=== PATIENT | female | born 1970 | race Caucasian/White ===

== ENCOUNTER 2021-03-11 10:02 | Inpatient (IN) ==
[2021-03-11] MEDS ORDERED: HYDROmorphone INJ 0.5 MG/0.5 ML SYR IV PRN (10:36)
[2021-03-11] MEDS ORDERED: dexAMETHasone**PF** 10 MG/ML VIAL IV ONE (10:36)
[2021-03-11] MEDS ORDERED: ONDANSETRON INJ 2 MG/ML 2 ML VIAL IV STA (10:36)
--- NOTE | 2021-03-11 11:29 | Emergency Department Note ---
Impression & Plan Severe low back pain, Sciatica, Herniated nucleus pulposus, L4-5 right ED Provider Note INFORMANT: Patient ED PROVIDER(S): Cruz Zepeda MD CHIEF COMPLAINT: Back pain PLAN: Disposition: Admitted Condition: Good Outpatient prescription management: none Referral: None MEDICAL DECISION MAKING: Patient presented with severe back pain and sciatic symptoms. She has a known severe bulging disc with nerve root compression. The patient was given Dilaudid and Zofran. She was reassessed and was feeling better. She was also treated with Decadron. Consultation was made with her spine surgeon, Dr. Loyola. He is aware of the patient's significant condition and will admit the patient for further management. Triage Nursing notes reviewed and agree them. Vital Signs: reviewed and remarkable for no significant abnormalities Differential diagnosis: Musculoskeletal, disc herniation, fracture, metastatic disease, cord compression, discitis, sciatica, cauda equina, infection, aortic disease, renal colic, gastrointestinal, as well as other pathologies. Diagnostics interpreted by me: ECG: none Cardiac Monitoring: none Imaging studies: Deferred HPI: The patient is a 51 year old female who presents to the Emergency Room with complaints of low back pain. This started last night and is increasing. The patient has a history of an L4 herniated disc which was compressing on her L4 nerve root. She has been seen by Dr. Loyola in the past. She was to have surgery but it has been postponed secondary to the Covid pandemic. She was decorating her house yesterday and felt like she may have strained her lower back. Pain became more severe. She has right leg weakness. No bowel or bladd er incontinence. She did try her NSAID at home without relief. Current pain is rated an 8/10. Pt denies LOC, headache, fevers, chills, diaphoresis, visual changes, neck pain, chest pain, breathing difficulties, nausea, vomiting, abdominal pain, melena, hematochezia, urinary symptoms, numbness,lym phadenopathy, rash, or other complaints. ROS: See above HPI for pertinent positives & negatives. A total of 10 systems reviewed and were otherwise negative. PAST MEDICAL HISTORY:See Below , herniated disc, asthma PAST SURGICAL HISTORY:See Below, discectomy, laminectomy, hysterectomy FAMILY HISTORY:See Below SOCIAL HISTORY:See Below, employed HOME MEDICATIONS:See Below ALLERGIES:See Below VITALS:See Below PHYSICAL EXAMINATION: GENERAL: Awake, alert, very uncomfortable-appearing, in no distress HENT: Normocephalic, atraumatic. Oropharynx unremarkable. EYES: Normal conjunctiva. Sclera non-icteric. NECK: Inspection normal. Non-tender. Supple. No nuchal rigidity. FROM. No masses. RESPIRATORY: Clear to auscultation. No wheezes. No rales. Normal respiratory effort. CARDIAC: Normal rate. Normal rhythm. No murmurs. No rubs. Extremities warm and well perfused. Pulses equal. No JVD. GI: Soft, non-distended. No tenderness to palpation. No rebound or guarding. No masses. RECTAL: Deferred. MUSCULOSKELETAL: Atraumatic. Chest examination reveals no tenderness. The back is symmetrical on inspection without obvious abnormality. There is no CVA t enderness to palpation. No joint edema. Tenderness over the right sciatic notch. LOWER EXTREMITIES: Calves are equal size bilaterally and non-tender. No edema. No discoloration. NEURO: Normal sensorium. Mild weakness noted of right foot dorsiflexion and plantar flexion. Subjective tingling in the area of the right lateral calf. No saddle anesthesia. SKIN: No rash or jaundice noted. Cruz Zepeda MD Past Med/Surg History Medical History Asthma GERD (gastroesophageal reflux disease) Obesity Stomach problems Surgical History H/O discectomy H/O laminectomy H/O: hysterectomy Family History Other Cancer Diabetes Hypertension Social History Smoking Status: Never smoker Hx Alcohol Use: No Hx Substance Use: No Preferred Language: Upper Sorbian Communication Ability: Effective Sas Bi Developer Required: No Beliefs That Will Affect Care: None marital status: Current Living Situation: Significant Other Feels Safe at Home: No Safety Concerns: Feels Safe At This Time Allergies Allergies Allergy/AdvReac Type Severity Reaction Status Date / Time cephalexin Allergy Mild rash Verified 03/11/21 13:36 Sulfa (Sulfonamide Allergy Mild rash Verified 03/11/21 13:36 Antibiotics) Penicillins Allergy Unknown ? Verified 03/11/21 13:36 adhesive AdvReac Unknown BANDAIDS - Verified 03/11/21 13:36 BURN SKIN Home Meds Home Medications Medication Instructions Recorded Confirmed ascorbic acid (vitamin C) 500 mg 500 mg PO DAILY 04/01/18 03/11/21 tablet (Vitamin C) cholecalciferol (vitamin D3) 25 1,000 unit PO DAILY 04/01/18 03/11/21 mcg (1,000 unit) tablet (Vitamin D3) indomethacin 75 mg 75 mg PO BID 04/01/18 03/11/21 capsule,extended release multivitamin 1 tab PO DAILY 04/01/18 03/11/21 pantoprazole 40 mg tablet,delayed 40 mg PO DAILY 04/01/18 03/11/21 release Amberen 1 tab PO DAILY 03/11/21 03/11/21 aspirin 81 mg tablet,delayed 81 mg PO DAILY 03/11/21 03/11/21 release (Aspirin Low Dose) cinnamon bark 500 mg capsule 500 mg PO DAILY 03/11/21 03/11/21 (Cinnamon) gabapentin 100 mg capsule 100 mg PO DAILY 03/11/21 03/11/21 Results & Data (ED) Vital Signs Vital Signs - 24 hr 03/11/21 10:10 03/11/21 12:01 03/11/21 13:24 Temperature 36.6 C Temperature Source Skin Pulse Rate 99 H Pulse Rate [Finger] 82 79 Respiratory Rate 18 20 18 Blood Pressure 149/77 H Blood Pressure [Right Arm] 145/87 H 136/87 Blood Pressure Mean 101 Blood Pressure Mean [Right Arm] 106 103 Pulse Oximetry 97 99 100 Oxygen Delivery Method Room Air Room Air Room Air Sepsis Recent Fever Within 48 Hours No Sepsis New/Unexplained Change in Mental Status No Sepsis Action Taken by Nursing No Action Required Laboratory Data Result diagrams: 03/11/21 11:44 03/11/21 16:14 Lab Results 03/11/21 03/11/21 03/11/21 Range/Units 11:44 11:44 13:20 WBC 8.77 (4.8-10.8) K/uL RBC 4.87 (4.2-5.4) M/uL Hgb 14.3 (12.0-16.0) g/dL Hct 42.8 (37-47) % MCV 87.9 (80-100) fL MCH 29.4 (25-34) pg MCHC 33.4 (32-36) g/dL RDW Std Deviation 43.0 (36.4-46.3) fL RDW Coeff of Brenda 13.3 (11.5-14.5) % Plt Count 267 (130-400) K/uL MPV 10.1 (7.4-10.4) fL Immature Gran % (Auto) 0.2 % Neut % (Auto) 53.3 % Lymph % (Auto) 33.5 % [place] % (Auto) 8.4 % Eos % (Auto) 4.1 % Baso % (Auto) 0.5 % Neut # (Auto) 4.67 (1.4-6.5) K/uL Lymph # (Auto) 2.94 (1.2-3.4) K/uL [place] # (Auto) 0.74 H (0.11-0.59) K/uL Eos # (Auto) 0.36 (0-0.5) K/uL Baso # (Auto) 0.04 (0-0.2) K/uL Immature Gran # (Auto) 0.02 (0.00-0.02) K/uL Sodium 140 (136-145) mmol/L Potassium (3.5-5.1) mmol/L Chloride 109 H (98-107) mmol/L Carbon Dioxide 26 (21-32) mmol/L Anion Gap 5.0 (3-11) BUN 15 (7-18) mg/dl Creatinine 0.64 (0.6-1.2) mg/dl Est Cr Clr Drug Dosing 114.0 ml/min Est GFR ( Amer) 118.9 ml/min Est GFR (Non-Af Amer) 102.6 ml/min BUN/Creatinine Ratio 24.0 H (10-20) Glucose 101 H (70-99) mg/dl Calcium 9.4 (8.5-10.1) mg/dl Total Bilirubin 0.5 (0.2-1) mg/dl AST (15-37) U/L ALT 56 (12-78) Alkaline Phosphatase 89 (45-117) U/L Total Protein 7.3 (6.4-8.2) gm/dl Albumin 3.6 (3.4-5.0) gm/dl Globulin 3.7 (2.5-4.0) gm/dl Albumin/Globulin Ratio 1.0 (0.9-2) SARS-CoV-2, RNA, NAAT NEGATIVE (NEGATIVE) Administered Medications Lactated Ringer's (Lr) 1,000 mls @ 75 mls/hr IV .[id number] MARY CARMEN Stop: 04/10/21 15:29 Last Admin: 03/11/21 16:00 Dose: Not Given Documented by: [id number] Discontinued Medications Dexamethasone Sodium Phosphate (DexamethasonePf 10 Mg/Ml Vial) 10 mg IV NOW ONE Stop: 03/11/21 10:37 Last Admin: 03/11/21 11:56 Dose: 10 mg Documented by: [id number] Hydromorphone HCl (Hydromorphone Inj 0.5 Mg/0.5 Ml Syr) 0.5 mg IV Q15M PRN PRN Reason: Pain Stop: 03/25/21 10:35 Last Admin: 03/11/21 11:56 Dose: 0.5 mg Documented by: [id number] Ondansetron HCl (Ondansetron Inj 2 Mg/Ml 2 Ml Vial) 4 mg IV NOW STA Stop: 03/11/21 10:37 Last Admin: 03/11/21 11:56 Dose: 4 mg Documented by: [id number] Discharge Plan Visit Data Chief Complaint: Back Injury/Pain Stated Complaint: SEVERE BACK & R LEG PAIN ED Provider: Cruz Zepeda Discharge Problem: Severe low back pain, Sciatica, Herniated nucleus pulposus, L4-5 right Patient Disposition: Admitted As Inpatient Discharge Instructions Interventions: ED Discharge Assessment Last Done: 03/11/21 15:11
[2021-03-11 11:50] LABS: Basophils # (auto) 0.04 K/uL (0-0.2); Basophils % (auto) 0.5 %; Eosinophils # (auto) 0.36 K/uL (0-0.5); Eosinophils % (auto) 4.1 %; Hematocrit (blood only) 42.8 % (37-47); Hemoglobin 14.3 g/dL (12.0-16.0); Immature Granulocytes # (auto) 0.02 K/uL (0.00-0.02); Immature Granulocytes % (auto) 0.2 %; Lymphocytes # (auto) 2.94 K/uL (1.2-3.4); Lymphocytes % (auto) 33.5 %; Mean Corpuscular Hemoglobin 29.4 pg (25-34); Mean Corpuscular Hgb Conc 33.4 g/dL (32-36); Mean Corpuscular Volume 87.9 fL (80-100); Mean Platelet Volume 10.1 fL (7.4-10.4); Monocytes # (auto) 0.74 K/uL (0.11-0.59); Monocytes % (auto) 8.4 %; Neutrophils # (auto) 4.67 K/uL (1.4-6.5); Neutrophils % (auto) 53.3 %; Platelet Count 267 K/uL (130-400); RDW Coefficient of Variation 13.3 % (11.5-14.5); Red Blood Count 4.87 M/uL (4.2-5.4); White Blood Count 8.77 K/uL (4.8-10.8)
[2021-03-11 12:30] LABS: Albumin Level 3.6 gm/dl (3.4-5.0); Bilirubin,Total 0.5 mg/dl (0.2-1); Calcium 9.4 mg/dl (8.5-10.1); Est GFR (African American) 118.9 ml/min; Est GFR (Non-African American) 102.6 ml/min; Globulin 3.7 gm/dl (2.5-4.0); Total Protein 7.3 gm/dl (6.4-8.2)
--- NOTE | 2021-03-11 15:23 | Anesthesiology Consultation ---
Date of Service March 11, 2021 Assessment & Plan (1) Encounter for pre-operative examination: Chart Review Chart Review: Acceptable Risk for Surgery and Patient NOT seen in Pre Admission Testing Consults Requested none History Surgery Operation Date: 03/12/21 10:50 Proposed Procedures p L4-L5 Decompression and Fusion - Edward Loyola, Height/Weight Height: 5 ft 5 in Weight: 90 kg Allergies Allergy/AdvReac Type Severity Reaction Status Date / Time cephalexin Allergy Mild rash Verified 03/11/21 13:36 Sulfa (Sulfonamide Allergy Mild rash Verified 03/11/21 13:36 Antibiotics) Penicillins Allergy Unknown ? Verified 03/11/21 13:36 adhesive AdvReac Unknown BANDAIDS - Verified 03/11/21 13:36 BURN SKIN Medications Home Medications Medication Instructions Recorded Confirmed Last Taken ascorbic acid (vitamin C) 500 mg 500 mg PO DAILY 04/01/18 03/11/21 03/31/18 tablet (Vitamin C) cholecalciferol (vitamin D3) 25 1,000 unit PO DAILY 04/01/18 03/11/21 03/31/18 mcg (1,000 unit) tablet (Vitamin D3) indomethacin 75 mg 75 mg PO BID 04/01/18 03/11/21 03/31/18 capsule,extended release multivitamin 1 tab PO DAILY 04/01/18 03/11/21 03/31/18 pantoprazole 40 mg tablet,delayed 40 mg PO DAILY 04/01/18 03/11/21 03/31/18 release Amberen 1 tab PO DAILY 03/11/21 03/11/21 Unknown aspirin 81 mg tablet,delayed 81 mg PO DAILY 03/11/21 03/11/21 Unknown release (Aspirin Low Dose) cinnamon bark 500 mg capsule 500 mg PO DAILY 03/11/21 03/11/21 Unknown (Cinnamon) gabapentin 100 mg capsule 100 mg PO DAILY 03/11/21 03/11/21 Unknown Active Medications Generic Name Dose Route Start Last Admin Trade Name Freq PRN Reason Stop Dose Admin Hydromorphone HCl 0.5 mg 03/11/21 10:36 03/11/21 11:56 Hydromorphone Inj 0.5 Mg/0.5 Ml Syr IV 03/25/21 10:35 0.5 mg Q15M PRN Administration Pain Past Medical History Medical History Asthma GERD (gastroesophageal reflux disease) Obesity Stomach problems Past Family History Family History Other No pertinent family history Past Surgical History Surgical History H/O discectomy H/O laminectomy H/O: hysterectomy Social History Smoking Status: Never smoker Physical Exam Vital Signs Last Vital Signs Temp 36.6 C 03/11/21 10:10 Pulse 79 03/11/21 13:24 Resp 18 03/11/21 13:24 BP 136/87 03/11/21 13:24 Pulse Ox 100 03/11/21 13:24 Testing Laboratory Results 03/11/21 11:44 03/11/21 11:44 Electrocardiogram Date: 03/11/21 Findings: + NSR @ (79) and + NSST changes
[2021-03-11] MEDS ORDERED: ALUMINUM/MAGNESIUM SUSP 30 ML UDC PO PRN (15:30)
[2021-03-11] MEDS ORDERED: ONDANSETRON 4 MG OD TAB PO PRN (15:30)
[2021-03-11] MEDS ORDERED: METOCLOPRAMIDE HCL INJ 5 MG/ML 2 ML VIAL IV PRN (15:30)
[2021-03-11] MEDS ORDERED: HYDROmorphone INJ 1 MG/ML SYRINGE IV PRN (15:30)
[2021-03-11] MEDS ORDERED: MAGNESIUM HYDROXIDE SUSP 30 ML UDC PO PRN (15:30)
[2021-03-11] MEDS ORDERED: traMADol HCL 50 MG TABLET PO PRN (15:30)
[2021-03-11] MEDS ORDERED: ONDANSETRON INJ 2 MG/ML 2 ML VIAL IV PRN (15:30)
[2021-03-11] MEDS ORDERED: diphenhydrAMINE Capsule 25 MG CAP PO PRN (15:30)
[2021-03-11] MEDS ORDERED: LORazepam 0.5 MG/1 ML VIAL IV PRN (15:30)
[2021-03-11] MEDS ORDERED: ACETAMINOPHEN 1,000 MG/100 ML VIAL IV PRN (15:30)
[2021-03-11] MEDS ORDERED: NALOXONE HCL 0.4 MG/1 ML VIAL/CARP IV PRN (15:30)
[2021-03-11] MEDS ORDERED: SOD PHOSPHATE/SOD BIPHOSPHATE ENEMA 132 ML BTL PR PRN (15:30)
[2021-03-11] MEDS ORDERED: LORazepam 0.5 MG TAB PO PRN (15:30)
[2021-03-11] MEDS ORDERED: PROMETHAZINE HCL 12.5 MG in SODIUM CHLORIDE 0.9% 50 ML IV PRN (15:30)
[2021-03-11] MEDS ORDERED: hydrOXYzine HCl 25 MG TAB PO PRN (15:30)
--- NOTE | 2021-03-11 15:56 | History & Physical Report ---
Date of Service March 11, 2021 Assessment & Plan (1) Herniated nucleus pulposus, L4-5 right: Plan: Assessment lumbar disc herniation L4-5 with free fragment caudal migration on the right. Plan at this time she is failed extensive course of nonoperative care continues to progress to neuro deficit and pain and recommending urgent decompression fusion L4-L5 with hardware removal L5-S1, possible fusion L3-L4. Risk benefits pros cons alternatives were outlined in detail. Admission and Anticipated Discharge Date Admission Date: March 11, 2021 History of Present Illness Chief Complaint: Back with right leg pain and weakness Primary Care Provider: Aylin Patel, This is a 51-year-old female well-known to me that presents with marked decline in status with worsening pain in the lumbosacral junction rating into the right buttock posterior thigh into the anterior tibia. She gets numbness and tingling down to her toes. She is developing a significant foot drop on the right. Left lower extremities asymptomatic. She is undergone extensive course of nonoperative care including multiple epidural injections and physical therapy. She is noted to have decline recently with marked severe pain and progressive weakness. Allergies Allergy/AdvReac Type Severity Reaction Status Date / Time cephalexin Allergy Mild rash Verified 03/11/21 13:36 Sulfa (Sulfonamide Allergy Mild rash Verified 03/11/21 13:36 Antibiotics) Penicillins Allergy Unknown ? Verified 03/11/21 13:36 adhesive AdvReac Unknown BANDAIDS - Verified 03/11/21 13:36 BURN SKIN Home Medications Medication Instructions Recorded Confirmed Type ascorbic acid (vitamin C) 500 mg 500 mg PO DAILY 04/01/18 03/11/21 History tablet (Vitamin C) cholecalciferol (vitamin D3) 25 1,000 unit PO DAILY 04/01/18 03/11/21 History mcg (1,000 unit) tablet (Vitamin D3) indomethacin 75 mg 75 mg PO BID 04/01/18 03/11/21 History capsule,extended release multivitamin 1 tab PO DAILY 04/01/18 03/11/21 History pantoprazole 40 mg tablet,delayed 40 mg PO DAILY 04/01/18 03/11/21 History release Amberen 1 tab PO DAILY 03/11/21 03/11/21 History aspirin 81 mg tablet,delayed 81 mg PO DAILY 03/11/21 03/11/21 History release (Aspirin Low Dose) cinnamon bark 500 mg capsule 500 mg PO DAILY 03/11/21 03/11/21 History (Cinnamon) gabapentin 100 mg capsule 100 mg PO DAILY 03/11/21 03/11/21 History Past Med/Surg History Medical History Asthma GERD (gastroesophageal reflux disease) Obesity Stomach problems Surgical History H/O discectomy H/O laminectomy H/O: hysterectomy Family History Other No pertinent family history Social History (Updated 01/02/21 @ 22:30 by Andrew Coronado PA-C) Smoking Status: Never smoker Hx Alcohol Use: No Hx Substance Use: No Preferred Language: [place] Communication Ability: Effective Coining 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 She exhibits significant tension signs with straight leg raising on the right negative on the left. She has a 4-/5 right dorsiflexion extensor hallucis longus compared to 5 or 5 on the left. Quadriceps are symmetric and intact. Deep tendon reflexes diminished. Results & Data ([facility]) Vital Signs (Past 12 Hours) Vital Signs Temp Pulse Pulse Resp BP BP Pulse Ox 03/11/21 15:30 37.2 C 88 16 142/83 H 98 03/11/21 13:24 79 18 136/87 100 03/11/21 12:01 82 20 145/87 H 99 03/11/21 10:10 36.6 C 99 H 18 149/77 H 97 Code Status & VTE Plan VTE Prophylaxis Plan VTE Prophylaxis will be ordered: Yes
[2021-03-11] MEDS: LACTATED RINGER'S 1,000 ML IV SCH (16:00)
--- NOTE | 2021-03-11 16:13 | Consultation ---
Date of Consultation March 11, 2021 Assessment & Plan (1) Herniated nucleus pulposus, L4-5 right: (2) Sciatica: Low back pain with radiation right leg with paresthesias History lumbar herniation Planned L4-L5 lumbar decompression and fusion tomorrow by Dr. Loyola NPO midnight Pain control per ortho (3) GERD (gastroesophageal reflux disease): Continue PPI (4) HAILEY (obstructive sleep apnea): CPAP HS DVT Prophylaxis -SCDs Follows with Dr Patel for routine care Pt was seen and care coordinated with Dr Ceron. See addendum Thank you for this consultation. We will follow the patient with you during their hospital stay. You can reach a member of the [facility] Team 25/10 via [employer] Supervising Physician Co-Signing Physician Notes Patient is a 51-year-old female with history of GERD, obstructive sleep apnea, lower back pain was consulted for medical management. Patient had lumbar disc herniation at L4-L5 and was planned for surgery by Dr. Loyola. Currently she denies any chest pain, shortness of breath, dizziness, nausea, abdominal pain. Please review HPI for complete details. On exam patient is moderately built and nourished, no apparent distress, normocephalic atraumatic, EOMI, normal breath sounds, clear to auscultation, S1-S2, no murmur, no pedal edema, abdomen soft, nontender, normal bowel sounds, alert, awake, oriented, grossly no focal deficits. Lumbar disc herniation L4-L5. Monitor for postop anemia. Bowel regimen to prevent constipation. DVT prophylaxis as per primary team. PT OT when appropriate. Continue CPAP for obstructive sleep apnea. I personally reviewed the record. Patient is interviewed and examined at bedside. Patient's care is coordinated with Jordyn Cuello PA-C. Please refer to the documentation above for details of patient's presentation and for discussion of other issues. History of Present Illness Requesting Physician: Dr. Loyola Reason for Consultation: Medical management Attending Physician: Edward Loyola, DO History of Present Illness Patient is 51-year-old female with PMH sleep apnea, GERD, obesity, lumbar herniation, seen in medical consultation for proposed L4- L5 lumbar decompression and fusion tomorrow by Dr. Loyola. Patient with ongoing low back pain, worsened yesterday while decorating with pain radiating down right buttock and leg with paresthesias. Denies loss control of bowel/bladder Allergies Allergy/AdvReac Type Severity Reaction Status Date / Time cephalexin Allergy Mild rash Verified 03/11/21 13:36 Sulfa (Sulfonamide Allergy Mild rash Verified 03/11/21 13:36 Antibiotics) Penicillins Allergy Unknown ? Verified 03/11/21 13:36 adhesive AdvReac Unknown BANDAIDS - Verified 03/11/21 13:36 BURN SKIN Home Medications Medication Instructions Recorded Confirmed Type ascorbic acid (vitamin C) 500 mg 500 mg PO DAILY 04/01/18 03/11/21 History tablet (Vitamin C) cholecalciferol (vitamin D3) 25 1,000 unit PO DAILY 04/01/18 03/11/21 History mcg (1,000 unit) tablet (Vitamin D3) indomethacin 75 mg 75 mg PO BID 04/01/18 03/11/21 History capsule,extended release multivitamin 1 tab PO DAILY 04/01/18 03/11/21 History pantoprazole 40 mg tablet,delayed 40 mg PO DAILY 04/01/18 03/11/21 History release Amberen 1 tab PO DAILY 03/11/21 03/11/21 History aspirin 81 mg tablet,delayed 81 mg PO DAILY 03/11/21 03/11/21 History release (Aspirin Low Dose) cinnamon bark 500 mg capsule 500 mg PO DAILY 03/11/21 03/11/21 History (Cinnamon) gabapentin 100 mg capsule 100 mg PO DAILY 03/11/21 03/11/21 History Patient History Medical History (Updated 03/11/21 @ 16:59 by Jordyn Cuello PA-C) Asthma GERD (gastroesophageal reflux disease) Herniated nucleus pulposus, L4-5 right Obesity HAILEY (obstructive sleep apnea) Stomach problems Surgical History H/O discectomy H/O laminectomy H/O: hysterectomy Family History Other Cancer Diabetes Hypertension Social History Smoking Status: Never smoker Hx Alcohol Use: No Hx Substance Use: No Preferred Language: Citizen Of [place] Communication Ability: Effective 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: No Beliefs That Will Affect Care: None marital status: Current Living Situation: Significant Other Feels Safe at Home: No Safety Concerns: Feels Safe At This Time Review of Systems Review of Systems: All systems reviewed & are unremarkable except as noted in HPI & below Physical Exam Physical Exam: General: no distress, obese Head: normocephalic, atraumatic Eyes: conjunctiva non-injected, anicteric ENT: normal inspection external ears, nose, mucous membranes moist Neck: supple, trachea midline Lungs: clear, no respiratory distress, no wheezing/rhonchi/rales CV: RRR, no murmur, no pretibial edema Abd: normal BS, soft, non-tender Back: no skin discoloration Ext: no cyanosis, no calf tenderness; distal pulses intact, sensation to light touch intact Neuro: A&O x 3, no focal deficits noted, normal affect Skin: warm, dry Results & Data ([facility]) Vital Signs (Past 12 Hours) Vital Signs Temp Pulse Pulse Resp BP BP Pulse Ox 03/11/21 15:30 37.2 C 88 16 142/83 H 98 03/11/21 13:24 79 18 136/87 100 03/11/21 12:01 82 20 145/87 H 99 03/11/21 10:10 36.6 C 99 H 18 149/77 H 97 Laboratory Results Short CBC 03/11/21 Range/Units 11:44 WBC 8.77 (4.8-10.8) K/uL Hgb 14.3 (12.0-16.0) g/dL Hct 42.8 (37-47) % Plt Count 267 (130-400) K/uL BMP 03/11/21 03/11/21 11:44 16:14 Sodium 140 136 Potassium 3.9 Chloride 109 H 104 Carbon Dioxide 26 26 BUN 15 15 Creatinine 0.64 0.72 Glucose 101 H 213 H Calcium 9.4 9.6 Liver Function 03/11/21 Range/Units 11:44 Total Bilirubin 0.5 (0.2-1) mg/dl AST (15-37) U/L ALT 56 (12-78) Alkaline Phosphatase 89 (45-117) U/L Albumin 3.6 (3.4-5.0) gm/dl
--- NOTE | 2021-03-11 16:31 | Electrocardiogram Report ---
Test Reason : Blood Pressure : / mmHG Vent. Rate : 079 BPM Atrial Rate : 079 BPM P-R Int : 168 ms QRS Dur : 082 ms QT Int : 400 ms P-R-T Axes : 051 024 064 degrees QTc Int : 458 ms Normal sinus rhythm Nonspecific T wave abnormality Abnormal ECG When compared with ECG of 22-JUN-2013 12:28, No significant change was found Confirmed by Rafael Morris ([id number]) on 03/11/2021 4:30:38 PM Referred By: REFERRED SELF Confirmed By:Rafael Morris
[2021-03-11 16:55] LABS: BUN Creatinine Ratio 21.5 (10-20); Calcium 9.6 mg/dl (8.5-10.1); Creatinine Clr Calc Pharmacy 101.3 ml/min; Est GFR (African American) 111.6 ml/min; Est GFR (Non-African American) 96.3 ml/min; Potassium 3.9 mmol/L (3.5-5.1)
[2021-03-11] MEDS: ACETAMINOPHEN 500 MG TAB PO PRN (19:16)
[2021-03-12] MEDS: LACTATED RINGER'S 1,000 ML IV SCH ×2 (05:13→12:32)
[2021-03-12] MEDS ORDERED: CLINDAMYCIN 600 MG/54 ML BAG IV SCH (06:00)
[2021-03-12 06:52] LABS: Hemoglobin 13.6 g/dL (12.0-16.0); Mean Corpuscular Hemoglobin 29.6 pg (25-34); Mean Corpuscular Hgb Conc 33.2 g/dL (32-36); Mean Corpuscular Volume 89.1 fL (80-100); Mean Platelet Volume 10.2 fL (7.4-10.4); Platelet Count 313 K/uL (130-400); RDW Coefficient of Variation 13.6 % (11.5-14.5); RDW Standard Deviation 44.5 fL (36.4-46.3); White Blood Count 14.68 K/uL (4.8-10.8)
[2021-03-12 08:01] LABS: BUN Creatinine Ratio 34.6 (10-20); Calcium 9.4 mg/dl (8.5-10.1); Creatinine Clr Calc Pharmacy 108.9 ml/min; Est GFR (African American) 117.1 ml/min; Est GFR (Non-African American) 101.1 ml/min; Magnesium 2.2 mg/dl (1.8-2.4); Potassium 3.9 mmol/L (3.5-5.1)
[2021-03-12] MEDS: GABAPENTIN 100 MG CAP PO SCH (08:02)
[2021-03-12] MEDS: CHOLECALCIFEROL 1,000 UNITS 25 MCG TAB PO SCH (08:02)
[2021-03-12] MEDS: PANTOprazole 40 MG TAB PO SCH (08:03)
[2021-03-12] MEDS: MULTIVITAMIN TAB PO SCH (08:03)
[2021-03-12] MEDS: ASPIRIN 81 MG ECTAB PO SCH (08:03)
[2021-03-12] MEDS: ACETAMINOPHEN 500 MG TAB PO PRN (08:16)
--- NOTE | 2021-03-12 10:33 | Orthopedic Progress Note ---
Date of Service March 12, 2021 Assessment & Plan (1) Herniated nucleus pulposus, L4-5 right: Plan: At this time patient does have evidence of herniated lumbar disc at L4-5 with caudal migration and significant encroachment the traversing nerve root. She has progressive motor deficit pain uncontrolled with medications and I am recommending urgent decompression fusion L4-L5 possibly L3-L4 to avoid permanent motor deficit. Patient understands and agrees. Admission and Anticipated Discharge Date Admission Date: March 11, 2021 Subjective Patient continues to have severe right sided radiculopathy. Pain is not controlled with narcotic medications. She still has significant limitation with ambulation secondary to pain and weakness. Physical Exam Physical Exam: Physical exam she continues to exhibit marked motor deficit to testing the right lower extremity with loss of dorsi flexion extensor pollicis longus at 4-/5. The left is a 5 or 5. Tension signs present on the right. Results & Data ([facility]) Vital Signs (Past 12 Hours) Vital Signs Temp Pulse Resp BP Pulse Ox 03/12/21 07:15 36.8 C 84 18 135/79 98 03/11/21 22:58 36.5 C 90 18 111/70 94
[2021-03-12] MEDS: HYDROmorphone INJ 0.5 MG/0.5 ML SYR IV PRN (12:47)
[2021-03-12] MEDS ORDERED: fentaNYL citrate 100 MCG/2 ML VIAL ONE ×2 (13:28)
[2021-03-12] MEDS ORDERED: MIDAZOLAM HCL 1 MG/ML 2ML VIAL ONE (13:28)
--- NOTE | 2021-03-12 14:04 | History & Physical Bridge Note ---
Date of Service March 12, 2021 History & Physical Bridge Note I have examined the patient, reviewed the History & Physical and in the interval since the performance of the History & Physical I have noted the following changes of clinical significance: no changes noted Patient has progressive neurologic deficit with weakness affecting the right lower extremity is here to have lumbar decompression fusion L4-L5 possibly L3-L4 with hardware removal L5-S1.
[2021-03-12] MEDS ORDERED: BUPIVACAINE 0.5 % 5 MG/1 ML MPF 30ML VIAL ONE (14:26)
[2021-03-12] MEDS ORDERED: EPINEPHrine INJ 1 MG/ML AMP ONE (14:26)
[2021-03-12] MEDS ORDERED: ONDANSETRON INJ 2 MG/ML 2 ML VIAL ONE (14:31)
[2021-03-12] MEDS ORDERED: PHENYLEPHRINE 100MCG/ML 5ML SYR ONE (14:31)
[2021-03-12] MEDS ORDERED: DEXAMETHASONE SOD INJ 4 MG/ML VIAL ONE (14:31)
[2021-03-12] MEDS ORDERED: PROPOFOL IV EMULSION 10 MG/ML 20 ML VIAL IV ONE (14:31)
[2021-03-12] MEDS ORDERED: LARYING-O-JET KIT (LTA) ONE (14:31)
[2021-03-12] MEDS ORDERED: ePHEDrine sulfate 50 MG/ML SYR ONE (14:31)
[2021-03-12] MEDS ORDERED: LIDOCAINE 2% 2 ML VIAL/AMP(20MG/ML) INFIL ONE (14:31)
[2021-03-12] MEDS ORDERED: NEOSTIGMINE METHYLSULFATE 1 MG/ML 10ML VIAL ONE (14:31)
[2021-03-12] MEDS ORDERED: ROCURONIUM BROMIDE 10 MG/ML 5 ML VIAL IV ONE (14:31)
[2021-03-12] MEDS ORDERED: GLYCOPYRROLATE 0.2 MG/ML VIAL ONE (14:31)
[2021-03-12] MEDS ORDERED: HYDROmorphone INJ 2 MG/ML SYR/VIAL ONE (15:01)
--- NOTE | 2021-03-12 15:13 | Hospitalist Progress Note ---
Date of Service March 12, 2021 Assessment & Plan (1) Herniated nucleus pulposus, L4-5 right: (2) Sciatica: Plan: Low back pain with radiation right leg with paresthesias History lumbar herniation Planned L4-L5 lumbar decompression and fusion today by Dr. Loyola Monitor H&H, continue incentive spirometry, PT/OT when appropriate (3) GERD (gastroesophageal reflux disease): Plan: Continue PPI (4) HAILEY (obstructive sleep apnea): Plan: CPAP HS DVT Prophylaxis Per ortho Follows with Dr Patel for routine care Pt was seen and care coordinated with Dr. Plaza. See addendum Thank you for this consultation. We will follow the patient with you during their hospital stay. You can reach a member of the [facility] Team 25/10 via TigerText Admission and Anticipated Discharge Date Admission Date: March 11, 2021 Supervising Physician Co-Signing Physician Notes 51-year-old lady with history of GERD, HAILEY, low back pain with numbness/tingling/pain down right lower extremity admitted for elective surgery by Dr. Isaacs. Consulted for medical management. Patient currently denies any chest pain/shortness of breath/dizziness/nausea/abdominal pain. Patient does report pain down her right lower extremity. Patient to get surgery today. Incentive spirometer/postoperative blood loss anemia/bowel regimen/PT and OT. Pain management and DVT prophylaxis per primary team. Upon examination, heart lungs and abdomen examination were WNL, patient was on room air, no edema appreciated in BLE. I have seen and examined the patient and have discussed the case with Rosie. I agree with the assessment and plan as stated. Subjective Patient seen and examined on 379-2. Having lower back pain with radiation to ri t lower extremity. Denies any fever, chills, headache, lightheadedness, chest pain, shortness of breath, nausea, vomiting, abdominal pain, dysuria or diarrhea. Decreased frequency of bowel movements lately. Will start bowel regimen. Due for OR later today. Review of Systems Review of Systems: At least ten systems reviewed and negative except as noted in the HPI. Physical Exam Physical Exam: Gen: WD/WN, NAD, lying in bed, A&Ox3 HEENT: Normocephalic, atraumatic, conjunctivae moist, sclerae anicteric, mucous membranes moist Lung: Clear to Auscultation bilaterally, no wheezes/rales/rhonchi Heart: Regular rate, regular rhythm, no murmurs, rubs, or gallops Abdomen: Soft, NT, ND +BS x 4 Extremities: Lower back pain with radiation to RLE. No edema Skin: Warm, no rash Results & Data Results & Data ([facility]) Vital Signs (Past 12 Hours) Vital Signs Temp Pulse Resp BP Pulse Ox 03/12/21 13:46 36.8 C 87 20 148/85 H 97 03/12/21 07:15 36.8 C 84 18 135/79 98 Laboratory Results Short CBC 03/12/21 Range/Units 06:44 WBC 14.68 H (4.8-10.8) K/uL Hgb 13.6 (12.0-16.0) g/dL Hct 41.0 (37-47) % Plt Count 313 (130-400) K/uL BMP 03/11/21 03/12/21 16:14 06:44 Sodium 136 139 Potassium 3.9 3.9 Chloride 104 107 Carbon Dioxide 26 24 BUN 15 23 H D Creatinine 0.72 0.67 Glucose 213 H 127 H Calcium 9.6 9.4
[2021-03-12] MEDS ORDERED: ONDANSETRON INJ 2 MG/ML 2 ML VIAL IV PRN ×2 (15:33→18:27)
[2021-03-12] MEDS ORDERED: ATROPINE SULFATE 0.1 MG/ML 10ML SYR IV PRN (15:33)
[2021-03-12] MEDS ORDERED: ePHEDrine sulfate 50 MG/ML AMP IV PRN (15:33)
[2021-03-12] MEDS ORDERED: HYDROmorphone INJ 2 MG/ML SYR/VIAL IV PRN (15:33)
[2021-03-12] MEDS ORDERED: FLOSEAL HEMOSTATIC MATRIX 10ML TOP ONE (15:33)
--- NOTE | 2021-03-12 16:37 | Operative Report ---
Post Operative Report Pre & Post Diagnosis Operation Date: 03/12/21 10:50 Pre-Op Diagnosis: Herniated nucleus pulposus, L4-5, right Post-Op Diagnosis: Herniated nucleus pulposus, L4-5, right I identified the patient and participated in the time-out.: Yes Procedure Operation Date: 03/12/21 10:50 Actual Procedures #1 removal of posterior instrumentation L5-S1. #2 exploration of fusion L5-S1. #3 lumbar decompression with bilateral medial facetectomies and foraminotomies with removal of herniated free fragment L3-L4 L4-5. #4 posterior spinal fusion L3-L4 L4-5. #5 placement posterior instrumentation L3-L4 L4-L5. #6 interbody fusion L4-L5. #7 placement peek cage 13 x 22 mm at L4-L5. #8 placement locally harvested morselized autograft in the posterior gutters. #9 placement infuse collagen sponge, and master graft in the posterior lateral gutters and I factor in the interbody space. Surgeon Edward Loyola, Building Surveyor Charla Oquendo Estimated Blood Loss 100 Findings Consistent with Post-Op Diagnosis Specimens None Indications This is a 51 old female known to me the presents with marked decline in neurologic status weakness and severe radiculopathy affecting right lower extremity. Subsequently she is here for urgent decompression fusion to halt progressive neurologic deficit. Description of Procedure Patient was met with identified informed consent obtained. Patient is then taken to the operative suite underwent ablation placed in a prone position on the Fito table on top of the Spencer frame. All bony prominences well-padded eyes inspected to ensure no external pressure placed upon the. This point lumbar spine was prepped and draped in a sterile fashion. Sharp dissection with the assistance of Bovie cautery was performed down to and exposing the lamina and transverse processes of L3-L4 and instrumentation at L5 and S1 levels bilaterally. And then proceeded to move the hardware bilaterally explore the fusion mass noting it to be mature and intact. Then performed a complete laminectomy of L4 partial laminectomy of L3 to include bilateral medial facetectomies and foraminotomies. This did include identification removal of massive free fragment of disc material at L4-5 on the right that migrated caudally. This provided significant decompression of the traversing L5 root. At this complete pedicle screws were placed at L3-L4-L5 bilaterally with assistance of fluoroscopy and a properly sized elbert placed. By way of a transforaminal portion radically discectomy of L 4 L5 was performed endplates curetted to subcortical bleeding bone and a 13 x 22 mm peek cage filled with I factor tapped the position. The rods were then compressed locked into final position bilaterally. The transverse processes of L3-L4-L5 were burred to subcortically bone. Infuse collagen sponge master graft lobe autograft was placed in the posterior gutters. 15 round ANATOLY drain inserted. Incision was then closed with 1 Vicryl the fascia 2-0 Vicryl subcutaneously and 4 Monocryl for final skin closure. Steri-Strip sterile dressing was placed. Patient will continue PACU stable condition. Please note spinal cord monitoring was utilized at the procedure no changes noted. Lastly Charla Oquendo was present at the entire surgeon while the patient positioning complex portions of the surgery and final skin closure. I attest to the content of the Intraoperative Record and any orders documented therein. Any exceptions are noted below.
[2021-03-12] MEDS: fentaNYL citrate 100 MCG/2 ML VIAL IV PRN ×2 (17:01→17:06)
--- NOTE | 2021-03-12 17:03 | Fluoroscopy Report ---
FL lumbar spine 2-3V CLINICAL HISTORY: L4-5 DECOMPRESSION/FUSION TECHNIQUE: 4 views were obtained with the C-arm in the OR with the above procedure. Total fluoroscopy time was 17.9 seconds. Total skin dose was 16.4 mGy. Comparison: None available at the time of this dictation. FINDINGS/IMPRESSION: Multiple intraoperative images were obtained of L5-S1 hardware removal and L4-L5 discectomy. Please correlate with intraoperative fluoroscopy and operative report. ACT 112: Negative or not required by law. Electronically signed by: Jose Cardona M.D. 03/12/2021 5:01 PM
[2021-03-12] MEDS ORDERED: HYDROmorphone INJ 0.5 MG/0.5 ML SYR IV PRN (18:27)
[2021-03-12] MEDS ORDERED: METOCLOPRAMIDE HCL INJ 5 MG/ML 2 ML VIAL IV PRN (18:27)
[2021-03-12] MEDS ORDERED: ALUMINUM/MAGNESIUM SUSP 30 ML UDC PO PRN (18:27)
[2021-03-12] MEDS ORDERED: DO NOT ADMINISTER PNEUMOCOCCAL VACCINE PRN (18:27)
[2021-03-12] MEDS ORDERED: hydrOXYzine HCl 25 MG TAB PO PRN (18:27)
[2021-03-12] MEDS ORDERED: diphenhydrAMINE Capsule 25 MG CAP PO PRN (18:27)
[2021-03-12] MEDS ORDERED: bisacodyL 10 MG SUPP PR PRN (18:27)
[2021-03-12] MEDS ORDERED: SOD PHOSPHATE/SOD BIPHOSPHATE ENEMA 132 ML BTL PR PRN (18:27)
[2021-03-12] MEDS ORDERED: NALOXONE HCL 0.4 MG/1 ML VIAL/CARP IV PRN (18:27)
[2021-03-12] MEDS ORDERED: traMADol HCL 50 MG TABLET PO PRN (18:27)
[2021-03-12] MEDS ORDERED: MAGNESIUM HYDROXIDE SUSP 30 ML UDC PO PRN (18:27)
[2021-03-12] MEDS ORDERED: ACETAMINOPHEN 500 MG TAB PO PRN (18:27)
[2021-03-12] MEDS ORDERED: ONDANSETRON 4 MG OD TAB PO PRN (18:27)
[2021-03-12] MEDS ORDERED: LORazepam 0.5 MG/1 ML VIAL IV PRN (18:27)
[2021-03-12] MEDS ORDERED: oxyCODONE HCL IR 5 MG TAB (IMMEDIATE RELEASE) PO PRN (18:27)
[2021-03-12] MEDS ORDERED: PROMETHAZINE HCL 12.5 MG in SODIUM CHLORIDE 0.9% 50 ML IV PRN (18:27)
[2021-03-12] MEDS ORDERED: LORazepam 0.5 MG TAB PO PRN (18:27)
[2021-03-12] MEDS ORDERED: ACETAMINOPHEN 1,000 MG/100 ML VIAL IV PRN (18:27)
[2021-03-12] MEDS ORDERED: FAMOTIDINE 20 MG TAB PO PRN (18:27)
[2021-03-12] MEDS ORDERED: HYDROmorphone INJ 1 MG/ML SYRINGE IV PRN (18:27)
[2021-03-12] MEDS ORDERED: DO NOT ADMINISTER FLU VACCINE PRN (18:27)
[2021-03-12] MEDS: ASCORBIC ACID 500 MG TAB PO SCH (18:45)
[2021-03-12] MEDS ORDERED: SODIUM CHLORIDE 0.9% 1000ML 1,000 ML IV SCH (18:45)
[2021-03-12] MEDS: KETOROLAC TROMETHAMINE 15 MG/ML VIAL IV SCH (20:30)
[2021-03-12] MEDS: DOCUSATE SODIUM/SENNA 50/8.6MG TAB PO SCH (21:42)
[2021-03-12] MEDS: POLYETHYLENE (MIRALAX) 17 GM PACK PO SCH (21:42)
[2021-03-12] MEDS: CLINDAMYCIN 600 MG in DEXTROSE 5% 50 ML IV SCH (21:42)
[2021-03-13] MEDS: KETOROLAC TROMETHAMINE 15 MG/ML VIAL IV SCH ×3 (01:08→13:19)
[2021-03-13] MEDS: LACTATED RINGER'S 1,000 ML IV SCH (01:09)
[2021-03-13] MEDS: CLINDAMYCIN 600 MG in DEXTROSE 5% 50 ML IV SCH (05:44)
[2021-03-13] MEDS: POLYETHYLENE (MIRALAX) 17 GM PACK PO SCH ×6 (05:44→23:18)
[2021-03-13 07:05] LABS: Basophils # (auto) 0.01 K/uL (0-0.2); Basophils % (auto) 0.1 %; Hematocrit (blood only) 38.6 % (37-47); Hemoglobin 12.6 g/dL (12.0-16.0); Immature Granulocytes # (auto) 0.06 K/uL (0.00-0.02); Immature Granulocytes % (auto) 0.4 %; Lymphocytes % (auto) 12.1 %; Mean Corpuscular Hemoglobin 29.3 pg (25-34); Mean Corpuscular Hgb Conc 32.6 g/dL (32-36); Mean Corpuscular Volume 89.8 fL (80-100); Mean Platelet Volume 10.2 fL (7.4-10.4); Monocytes # (auto) 0.91 K/uL (0.11-0.59); Monocytes % (auto) 5.5 %; Neutrophils # (auto) 13.51 K/uL (1.4-6.5); Neutrophils % (auto) 81.9 %; Platelet Count 292 K/uL (130-400); RDW Coefficient of Variation 13.9 % (11.5-14.5); RDW Standard Deviation 45.8 fL (36.4-46.3); White Blood Count 16.49 K/uL (4.8-10.8)
[2021-03-13 07:30] LABS: BUN Creatinine Ratio 21.6 (10-20); Creatinine Clr Calc Pharmacy 93.5 ml/min; Est GFR (African American) 101.3 ml/min; Est GFR (Non-African American) 87.4 ml/min
[2021-03-13] MEDS: oxyCODONE HCL IR 5 MG TAB (IMMEDIATE RELEASE) PO PRN (08:26)
[2021-03-13] MEDS: ASCORBIC ACID 500 MG TAB PO SCH (08:27)
[2021-03-13] MEDS: GABAPENTIN 100 MG CAP PO SCH (08:28)
[2021-03-13] MEDS: PANTOprazole 40 MG TAB PO SCH (08:28)
[2021-03-13] MEDS: MULTIVITAMIN TAB PO SCH (08:28)
[2021-03-13] MEDS: CHOLECALCIFEROL 1,000 UNITS 25 MCG TAB PO SCH (08:28)
[2021-03-13] MEDS: ASPIRIN 81 MG ECTAB PO SCH (08:28)
[2021-03-13] MEDS: dexAMETHasone 6 MG in SYRINGE 0 ML IV SCH (08:29)
[2021-03-13] MEDS ORDERED: SODIUM CHLORIDE 0.9% 1000ML 500 ML IV ONE (11:09)
--- NOTE | 2021-03-13 13:34 | Orthopedic Progress Note ---
Date of Service March 13, 2021 Assessment & Plan (1) Herniated nucleus pulposus, L4-5 right: Plan: This time we will reinitiate physical therapy this afternoon or least attempt to try to get her to a chair. We will see how she progresses throughout the week and hopefully discharge home Tuesday. Admission and Anticipated Discharge Date Admission Date: March 11, 2021 Subjective Patient's right leg pain is markedly improved. She is struggling with back pain. Did have an episode of orthostatic hypotension this morning. Physical Exam Physical Exam: Patient is in bed. She is comfortable. She exhibits good strength testing lower extremities. Results & Data ([facility]) Vital Signs (Past 12 Hours) Vital Signs Temp Pulse Resp BP Pulse Ox 03/13/21 11:15 97 H 18 128/80 96 03/13/21 10:15 84 98/52 L 96 03/13/21 10:00 61/24 L 03/13/21 07:10 36.6 C 80 14 126/71 94 03/13/21 04:06 36.6 C 92 H 18 119/75 100
[2021-03-13] MEDS ORDERED: bisacodyL 10 MG SUPP PR PRN (13:58)
--- NOTE | 2021-03-13 15:32 | Hospitalist Progress Note ---
Date of Service March 13, 2021 Assessment & Plan (1) Herniated nucleus pulposus, L4-5 right: (2) Sciatica: Plan: Low back pain with radiation right leg with paresthesias History lumbar herniation POD#1 s/p L4-L5 lumbar decompression and fusion today by Dr. Loyola Monitor H&H (EBL 100ml. Hgb 12.6 today (pre-op hgb 13.6) Continue incentive spirometry, PT/OT when appropriate (3) Orthostatic hypotension: Plan: Episode of orthostatic hypotension where she developed near syncope, lightheadedness and nausea. BP was taken that time and noted to be 61/24 and then 98/52. Improved to 128/80 when she got back into bed Was given 500ml NSS bolus with complete resolution of symptoms Continue maintenance fluids Discussed changing positions cautiously, fall precautions (4) GERD (gastroesophageal reflux disease): Plan: Continue PPI (5) HAILEY (obstructive sleep apnea): Plan: CPAP HS DVT Prophylaxis Per ortho Follows with Dr Patel for routine care Pt was seen and care coordinated with Dr. Matta. See addendum Thank you for this consultation. We will follow the patient with you during their hospital stay. You can [facility] a [facility] via TigerText Admission and Anticipated Discharge Date Admission Date: March 11, 2021 Supervising Physician Co-Signing Physician Notes Attending addendum The patient was seen and examined in medical floor She complains to have back pain and has had a near syncopal episode during PT today Remains in pain but denies any shortness of breath and/or palpitation, no nausea and or vomiting On examination Hemodynamically stable Chestclear to auscultate bilaterally HeartS1-S2, regular Abdomenbenign Extremitiesno edema Her labs and imaging studies reviewed She is a status post lumbar decompression and fusion involving L4-5 distribution Suffered an orthostatic hypotension during PT today and received intravenous fluid and was advised to drink more fluid Agree with assessment and plan as outlined above by LILIYA Dillon Dr Subjective Seen and examined in 379-2. Endorsing worsened surgical pain this morning. Just received pain medication from RN. During ambulation this morning with therapy, patient had episode of orthostatic hypotension where she developed near syncope, lightheadedness and nausea. Blood pressure was taken that time and noted to be 61/24 and then 98/52. Improved to 128/80 when she got back into bed and symptoms resolved. Was given 500ml NSS bolus and will continue maintenance fluids. Denies any fever, chills, headache, chest pain, palpitation, shortness of breath, vomiting, diarrhea or constipation. Has Black catheter in place. Pa ssing flatus, no bowel movement post op yet. Review of Systems Review of Systems: At least ten systems reviewed and negative except as noted in the HPI. Physical Exam Physical Exam: Gen: WD/WN, NAD, lying in bed, A&Ox3 HEENT: Normocephalic, atraumatic, conjunctivae moist, sclerae anicteric, mucous membranes moist Lung: Clear to Auscultation bilaterally, no wheezes/rales/rhonchi Heart: Tachycardic rate, regular rhythm, no murmurs, rubs, or gallops Abdomen: Soft, NT, ND +BS x 4 Extremities: Spinal dressing c/d/i. ANATOLY drain visualized. No edema : Black catheter in place Skin: Warm, no rash Results & Data Results & Data ([facility]) Vital Signs (Past 12 Hours) Vital Signs Temp Pulse Resp BP Pulse Ox 03/13/21 11:15 97 H 18 128/80 96 03/13/21 10:15 84 98/52 L 96 03/13/21 10:00 61/24 L 03/13/21 07:10 36.6 C 80 14 126/71 94 03/13/21 04:06 36.6 C 92 H 18 119/75 100 Laboratory Results Short CBC 03/13/21 Range/Units 06:41 WBC 16.49 H (4.8-10.8) K/uL Hgb 12.6 (12.0-16.0) g/dL Hct 38.6 (37-47) % Plt Count 292 (130-400) K/uL BMP 03/13/21 06:41 Sodium 138 Potassium 4.0 Chloride 105 Carbon Dioxide 25 BUN 17 Creatinine 0.78 Glucose 144 H Calcium 9.0 Diagnostic Findings Lumbar Spine X-Ray 03/12/21 11:00 FL lumbar spine 2-3V CLINICAL HISTORY: L4-5 DECOMPRESSION/FUSION TECHNIQUE: 4 views were obtained with the C-arm in the OR with the above procedure. Total fluoroscopy time was 17.9 seconds. Total skin dose was 16.4 mGy. Comparison: None available at the time of this dictation. FINDINGS/IMPRESSION: Multiple intraoperative images were obtained of L5-S1 hardware removal and L4-L5 discectomy. Please correlate with intraoperative fluoroscopy and operative report. ACT 112: Negative or not required by law. Electronically signed by: Jose Cardona M.D. 03/12/2021 5:01 PM
[2021-03-13] MEDS ORDERED: SODIUM CHLORIDE 0.9% 1000ML 1,000 ML IV SCH (15:45)
[2021-03-13] MEDS: HYDROmorphone INJ 0.5 MG/0.5 ML SYR IV PRN ×2 (16:18→21:26)
[2021-03-13] MEDS: DOCUSATE SODIUM/SENNA 50/8.6MG TAB PO SCH (23:14)
[2021-03-14] MEDS: POLYETHYLENE (MIRALAX) 17 GM PACK PO SCH ×2 (05:47→13:24)
[2021-03-14] MEDS: oxyCODONE HCL IR 5 MG TAB (IMMEDIATE RELEASE) PO PRN ×3 (05:58→21:07)
[2021-03-14 06:33] LABS: Hematocrit (blood only) 37.4 % (37-47); Hemoglobin 11.8 g/dL (12.0-16.0); Mean Corpuscular Hemoglobin 28.9 pg (25-34); Mean Corpuscular Hgb Conc 31.6 g/dL (32-36); Mean Corpuscular Volume 91.4 fL (80-100); Mean Platelet Volume 10.3 fL (7.4-10.4); Platelet Count 249 K/uL (130-400); RDW Standard Deviation 47.1 fL (36.4-46.3); Red Blood Count 4.09 M/uL (4.2-5.4); White Blood Count 14.08 K/uL (4.8-10.8)
[2021-03-14 07:04] LABS: BUN Creatinine Ratio 23.6 (10-20); Calcium 8.3 mg/dl (8.5-10.1); Creatinine Clr Calc Pharmacy 101.3 ml/min; Est GFR (African American) 111.6 ml/min; Est GFR (Non-African American) 96.3 ml/min; Potassium 3.6 mmol/L (3.5-5.1)
--- NOTE | 2021-03-14 08:37 | Orthopedic Progress Note ---
Date of Service March 14, 2021 Assessment & Plan (1) Herniated nucleus pulposus, L4-5 right: Plan: At this time we will continue with physical therapy monitor her ANATOLY output anticipate discharge home Tuesday. Admission and Anticipated Discharge Date Admission Date: March 11, 2021 Subjective Back pain better controlled today. Again no leg pain. Physical Exam Physical Exam: Patient appears very comfortable. She has good strength testing. Results & Data ([facility]) Vital Signs (Past 12 Hours) Vital Signs Temp Pulse Resp BP Pulse Ox 03/14/21 07:29 36.9 C 88 16 130/75 100 03/13/21 22:59 37 C 90 20 118/65 99
[2021-03-14] MEDS: ASPIRIN 81 MG ECTAB PO SCH (09:52)
[2021-03-14] MEDS: dexAMETHasone 6 MG in SYRINGE 0 ML IV SCH (09:52)
[2021-03-14] MEDS: MULTIVITAMIN TAB PO SCH (09:53)
[2021-03-14] MEDS: ASCORBIC ACID 500 MG TAB PO SCH (09:53)
[2021-03-14] MEDS: PANTOprazole 40 MG TAB PO SCH (09:53)
[2021-03-14] MEDS: CHOLECALCIFEROL 1,000 UNITS 25 MCG TAB PO SCH (09:53)
[2021-03-14] MEDS: GABAPENTIN 100 MG CAP PO SCH (09:54)
[2021-03-14] MEDS: NSS + 20MEQ KCL 20 MEQ/1,000 ML BAG IV SCH ×2 (10:49→17:59)
[2021-03-14] MEDS: ACETAMINOPHEN 500 MG TAB PO PRN (12:35)
[2021-03-14] MEDS: HYDROmorphone INJ 0.5 MG/0.5 ML SYR IV PRN (12:46)
--- NOTE | 2021-03-14 16:34 | Hospitalist Progress Note ---
Date of Service March 14, 2021 Assessment & Plan (1) Herniated nucleus pulposus, L4-5 right: (2) Sciatica: Plan: Low back pain with radiation right leg with paresthesias History lumbar herniation POD#2 s/p L4-L5 lumbar decompression and fusion today by Dr. Loyola Monitor H&H (EBL 100ml. Hgb 12.6 today (pre-op hgb 13.6) Continue incentive spirometry, PT/OT when appropriate Likely be discharged tomorrow as per primary (3) Orthostatic hypotension: Plan: Episode of orthostatic hypotension where she developed near syncope, lightheadedness and nausea. BP was taken that time and noted to be 61/24 and then 98/52. Improved to 128/80 when she got back into bed Was given 500ml NSS bolus with complete resolution of symptoms Continue maintenance fluids Discussed changing positions cautiously, fall precautions Will give 2 L of intravenous fluid to avoid postural hypotension Get orthostatic vitals tomorrow before discharge (4) GERD (gastroesophageal reflux disease): Plan: Continue PPI (5) HAILEY (obstructive sleep apnea): Plan: CPAP HS DVT Prophylaxis Per ortho Follows with Dr Patel for routine care Pt was seen and care coordinated with Dr. Matta. See addendum Thank you for this consultation. We will follow the patient with you during their hospital stay. You can reach a [facility] via TigerText Admission and Anticipated Discharge Date Admission Date: March 11, 2021 Subjective 03/14/2021 The patient was seen and examined in medical floor She was noted to have another episode of postural hypotension with near syncope this morning Still has back pain but denies any numbness and tingling involving the lower extremities Review of Systems Review of Systems: All systems reviewed and are unremarkable except as noted below Musculoskeletal: Back pain without any radiculopathy Physical Exam Physical Exam: Gen: WD/WN, NAD, lying in bed, A&Ox3 HEENT: Normocephalic, atraumatic, conjunctivae moist, sclerae anicteric, mucous membranes moist Lung: Clear to Auscultation bilaterally, no wheezes/rales/rhonchi Heart: Tachycardic rate, regular rhythm, no murmurs, rubs, or gallops Abdomen: Soft, NT, ND +BS x 4 Extremities: Spinal dressing c/d/i. AANTOLY drain visualized. No edema : Black catheter in place Skin: Warm, no rash Results & Data Results & Data ([facility]) Vital Signs (Past 12 Hours) Vital Signs Temp Pulse Resp BP Pulse Ox 03/14/21 16:24 36.8 C 96 H 16 130/72 95 03/14/21 09:23 81 18 113/62 95 03/14/21 09:21 82 18 78/39 L 98 03/14/21 07:29 36.9 C 88 16 130/75 100 Laboratory Results Short CBC 03/14/21 Range/Units 06:11 WBC 14.08 H (4.8-10.8) K/uL Hgb 11.8 L (12.0-16.0) g/dL Hct 37.4 (37-47) % Plt Count 249 (130-400) K/uL BMP 03/14/21 06:11 Sodium 141 Potassium 3.6 Chloride 108 H Carbon Dioxide 27 BUN 17 Creatinine 0.72 Glucose 118 H Calcium 8.3 L Medications Administered Current Inpatient Medications Acetaminophen (Acetaminophen 500 Mg Tab) 1,000 mg PO Q8H PRN PRN Reason: MILD Pain Scale 1,2,3 & Pre PT Stop: 04/10/21 15:29 Last Admin: 03/14/21 12:35 Dose: 1,000 mg Documented by: Acetaminophen (Acetaminophen 500 Mg Tab) 1,000 mg PO Q8H PRN PRN Reason: MILD Pain Scale 1,2,3 & Pre PT Stop: 04/11/21 18:26 Al Hydrox/Mg Hydrox/Simethicone (Aluminum/Magnesium Susp 30 Ml Udc) 30 ml PO Q6H PRN PRN Reason: Dyspepsia Stop: 04/10/21 15:29 Al Hydrox/Mg Hydrox/Simethicone (Aluminum/Magnesium Susp 30 Ml Udc) 30 ml PO Q6H PRN PRN Reason: Dyspepsia Stop: 04/11/21 18:26 Ascorbic Acid (Ascorbic Acid 500 Mg Tab) 500 mg PO DAILY MARY CARMEN Stop: 04/11/21 08:59 Last Admin: 03/14/21 09:53 Dose: 500 mg Documented by: Aspirin (Aspirin 81 Mg Ectab) 81 mg PO DAILY MARY CARMEN Stop: 04/11/21 08:59 Last Admin: 03/14/21 09:52 Dose: 81 mg Documented by: Bisacodyl (Bisacodyl 10 Mg Supp) 10 mg MS DAILY PRN PRN Reason: Constipation Stop: 04/12/21 13:57 Bisacodyl (Bisacodyl 10 Mg Supp) 10 mg MS DAILY PRN PRN Reason: Constipation Stop: 04/11/21 18:26 Diphenhydramine HCl (Diphenhydramine Capsule 25 Mg Cap) 25 mg PO Q6H PRN PRN Reason: Allergic Rhinitis/Insomnia Stop: 04/10/21 15:29 Diphenhydramine HCl (Diphenhydramine Capsule 25 Mg Cap) 25 mg PO Q6H PRN PRN Reason: Allergic Rhinitis/Insomnia Stop: 04/11/21 18:26 Famotidine (Famotidine 20 Mg Tab) 20 mg PO Q12H PRN PRN Reason: Dyspepsia Stop: 04/11/21 18:26 Gabapentin (Gabapentin 100 Mg Cap) 100 mg PO DAILY MARY CARMEN Stop: 04/11/21 08:59 Last Admin: 03/14/21 09:54 Dose: Not Given Documented by: Hydromorphone HCl (Hydromorphone Inj 0.5 Mg/0.5 Ml Syr) 0.5 mg IV Q3H PRN PRN Reason: MOD pain (scale 4-6) & Pre PT Stop: 03/25/21 15:29 Last Admin: 03/14/21 12:46 Dose: 0.5 mg Documented by: Hydromorphone HCl (Hydromorphone Inj 1 Mg/Ml Syringe) 1 mg IV Q3H PRN PRN Reason: severe pain (scale 7-10) Stop: 03/25/21 15:29 Last Admin: 03/11/21 23:47 Dose: 1 mg Documented by: Hydromorphone HCl (Hydromorphone Inj 0.5 Mg/0.5 Ml Syr) 0.5 mg IV Q3H PRN PRN Reason: MODERATE Pain (Scale 4,5,6) & Pre PT Stop: 03/26/21 18:26 Hydromorphone HCl (Hydromorphone Inj 1 Mg/Ml Syringe) 1 mg IV Q3H PRN PRN Reason: SEVERE Pain (Scale 7,8,9,10) Stop: 03/26/21 18:26 Hydroxyzine HCl (Hydroxyzine Hcl 25 Mg Tab) 25 mg PO Q8H PRN PRN Reason: Anxiety Stop: 04/10/21 15:29 Hydroxyzine HCl (Hydroxyzine Hcl 25 Mg Tab) 25 mg PO Q8H PRN PRN Reason: Anxiety Stop: 04/11/21 18:26 Promethazine HCl 12.5 mg/ (Sodium Chloride) 50.5 mls @ 202 mls/hr IV Q6H PRN PRN Reason: Nausea &/or Vomiting Stop: 04/10/21 15:29 Lorazepam (Ativan) 0.5 mg in 1 mls @ 1 mls/min IV Q8H PRN PRN Reason: Sedation/Anxiety Stop: 04/10/21 15:29 Acetaminophen (Ofirmev) 1,000 mg in 100 mls @ 400 mls/hr IV Q8H PRN PRN Reason: Pain Rating 1-3 & Pre PT Stop: 03/15/21 18:26 Lorazepam (Ativan) 0.5 mg in 1 mls @ 1 mls/min IV Q8H PRN PRN Reason: Sedation/Anxiety Stop: 04/11/21 18:26 Dexamethasone 6 mg/ Syringe 1.5 mls @ 1 mls/min IV DAILY MARY CARMEN Stop: 03/15/21 09:02 Last Admin: 03/14/21 09:52 Dose: 1 mls/min Documented by: Promethazine HCl 12.5 mg/ (Sodium Chloride) 50.5 mls @ 202 mls/hr IV Q6H PRN PRN Reason: Nausea &/or Vomiting Stop: 04/11/21 18:26 Potassium Chloride/Sodium Chloride (Normal Saline W/20 Meq Kcl) 20 meq in 1,000 mls @ 125 mls/hr IV .Q8H MARY CARMEN Stop: 03/15/21 02:29 Last Admin: 03/14/21 10:49 Dose: 125 mls/hr Documented by: Influenza Virus Vaccine Quadrival (Do Not Administer Flu Vaccine) 1 ea N/A PRN PRN PRN Reason: Notification Stop: 04/11/21 18:26 Lorazepam (Lorazepam 0.5 Mg Tab) 0.5 mg PO Q8H PRN PRN Reason: sedation/anxiety Stop: 04/10/21 15:29 Last Admin: 03/14/21 07:42 Dose: 0.5 mg Documented by: Lorazepam (Lorazepam 0.5 Mg Tab) 0.5 mg PO Q8H PRN PRN Reason: Sedation/Anxiety Stop: 04/11/21 18:26 Magnesium Hydroxide (Magnesium Hydroxide Susp 30 Ml Udc) 30 ml PO Q24H PRN PRN Reason: Constipation Stop: 04/10/21 15:29 Magnesium Hydroxide (Magnesium Hydroxide Susp 30 Ml Udc) 30 ml PO Q24H PRN PRN Reason: Constipation Stop: 04/11/21 18:26 Metoclopramide HCl (Metoclopramide Hcl Inj 5 Mg/Ml 2 Ml Vial) 10 mg IV Q6H PRN PRN Reason: Nausea &/or Vomiting Stop: 04/10/21 15:29 Metoclopramide HCl (Metoclopramide Hcl Inj 5 Mg/Ml 2 Ml Vial) 10 mg IV Q6H PRN PRN Reason: Nausea &/or Vomiting Stop: 04/11/21 18:26 Multivitamins (Multivitamin Tab) 1 tab PO DAILY MARY CARMEN Stop: 04/11/21 08:59 Last Admin: 03/14/21 09:53 Dose: 1 tab Documented by: Naloxone HCl (Naloxone Hcl 0.4 Mg/1 Ml Vial/Carp) 0.1 mg IV Q5M PRN PRN Reason: Oversedation/respiratory dep Stop: 04/10/21 15:29 Naloxone HCl (Naloxone Hcl 0.4 Mg/1 Ml Vial/Carp) 0.1 mg IV Q5M PRN PRN Reason: Oversedation/Resp depression Stop: 04/11/21 18:26 Ondansetron HCl (Ondansetron Inj 2 Mg/Ml 2 Ml Vial) 4 mg IV Q6H PRN PRN Reason: Nausea &/or Vomiting Stop: 04/10/21 15:29 Ondansetron HCl (Ondansetron 4 Mg Od Tab) 4 mg PO Q6H PRN PRN Reason: Nausea Stop: 04/10/21 15:29 Ondansetron HCl (Ondansetron Inj 2 Mg/Ml 2 Ml Vial) 4 mg IV Q6H PRN PRN Reason: Nausea &/or Vomiting Stop: 04/11/21 18:26 Ondansetron HCl (Ondansetron 4 Mg Od Tab) 4 mg PO Q6H PRN PRN Reason: Nausea Stop: 04/11/21 18:26 Oxycodone HCl (Oxycodone Hcl Ir 5 Mg Tab (Immediate Release)) 5 - 10 mg PO Q4H PRN PRN Reason: mod to severe pain Stop: 03/25/21 15:29 Last Admin: 03/14/21 15:23 Dose: 5 mg Documented by: Oxycodone HCl (Oxycodone Hcl Ir 5 Mg Tab (Immediate Release)) 5 - 10 mg PO Q4H PRN PRN Reason: Pain & Pre PT Stop: 03/26/21 18:26 Pantoprazole Sodium (Pantoprazole 40 Mg Tab) 40 mg PO DAILY MARY CARMEN Stop: 04/11/21 08:59 Last Admin: 03/14/21 09:53 Dose: 40 mg Documented by: Pneumococcal Polyvalent Vaccine (Do Not Administer Pneumococcal Vaccine) 1 ea N/A PRN PRN PRN Reason: Notification Stop: 04/11/21 18:26 Senna/Docusate Sodium (Docusate Sodium/Senna 50/8.6mg Tab) 2 tab PO HS [facility] Stop: 04/11/21 20:59 Last Admin: 03/13/21 23:14 Dose: 2 tab Documented by: Sodium Biphosphate/Sodium Phosphate (Sod Phosphate/Sod Biphosphate Enema 132 Ml Btl) 132 ml MS ONE PRN PRN Reason: Constipation Stop: 04/10/21 15:29 Sodium Biphosphate/Sodium Phosphate (Sod Phosphate/Sod Biphosphate Enema 132 Ml Btl) 132 ml MS ONE PRN PRN Reason: Constipation Stop: 04/11/21 18:26 Tramadol HCl (Tramadol Hcl 50 Mg Tablet) 50 - 100 mg PO Q4H PRN PRN Reason: Moderate-Severe pain & Pre PT Stop: 04/10/21 15:29 Tramadol HCl (Tramadol Hcl 50 Mg Tablet) 50 - 100 mg PO Q4H PRN PRN Reason: Moderate-Severe pain & Pre PT Stop: 04/11/21 18:26 Vitamin D (Cholecalciferol 1,000 Units 25 Mcg Tab) 1,000 units PO DAILY MARY CARMEN Stop: 04/11/21 08:59 Last Admin: 03/14/21 09:53 Dose: 1,000 units Documented by:
[2021-03-14] MEDS: DOCUSATE SODIUM/SENNA 50/8.6MG TAB PO SCH (20:39)
[2021-03-15] MEDS: oxyCODONE HCL IR 5 MG TAB (IMMEDIATE RELEASE) PO PRN ×4 (04:24→21:20)
[2021-03-15 06:39] LABS: Hematocrit (blood only) 36.3 % (37-47); Hemoglobin 11.6 g/dL (12.0-16.0); Mean Corpuscular Hemoglobin 29.1 pg (25-34); Mean Platelet Volume 10.2 fL (7.4-10.4); Platelet Count 249 K/uL (130-400); RDW Coefficient of Variation 13.9 % (11.5-14.5); Red Blood Count 3.99 M/uL (4.2-5.4); White Blood Count 12.77 K/uL (4.8-10.8)
[2021-03-15 07:04] LABS: BUN Creatinine Ratio 18.2 (10-20); Calcium 8.7 mg/dl (8.5-10.1); Creatinine Clr Calc Pharmacy 119.6 ml/min; Est GFR (African American) 120.8 ml/min; Est GFR (Non-African American) 104.2 ml/min
[2021-03-15] MEDS ORDERED: KETOROLAC TROMETHAMINE 15 MG/ML VIAL IV PRN (08:18)
--- NOTE | 2021-03-15 08:52 | Orthopedic Progress Note ---
Date of Service March 15, 2021 Assessment & Plan (1) Herniated nucleus pulposus, L4-5 right: Plan: With physical therapy. Maintain ANATOLY drain. I have added Voltaren gel, Toradol as needed and ice to the right buttock area. We will hold off on discharge today. Hopefully discharge home tomorrow. Admission and Anticipated Discharge Date Admission Date: March 11, 2021 Subjective Patient's postop day 3 status post lumbar decompression and fusion with adjacent level hardware removal. Postoperatively she is struggling with right sacroiliac pain. She states she has a known torn right gluteus that was diagnosed in November by [facility]. She had a bowel movement. ANATOLY drain output last shift was 50 cc. Yesterday in physical therapy ambulating 84 feet. Review of Systems Review of Systems: All systems reviewed & are unremarkable except as noted in HPI & below Physical Exam Physical Exam: Alert and oriented x3 lying on her left side In a 2 patient with a right sciatic notch and right buttock region. There is intact bilateral lower extremities Results & Data ([facility]) Vital Signs (Past 12 Hours) Vital Signs Temp Pulse Resp BP Pulse Ox 03/15/21 07:12 36.8 C 88 14 137/75 97 03/14/21 22:51 36.9 C 97 H 16 148/77 H 98
[2021-03-15] MEDS: ASPIRIN 81 MG ECTAB PO SCH (08:59)
[2021-03-15] MEDS: PANTOprazole 40 MG TAB PO SCH (09:00)
[2021-03-15] MEDS: dexAMETHasone 6 MG in SYRINGE 0 ML IV SCH (09:00)
[2021-03-15] MEDS: ASCORBIC ACID 500 MG TAB PO SCH (09:00)
[2021-03-15] MEDS: CHOLECALCIFEROL 1,000 UNITS 25 MCG TAB PO SCH (09:00)
[2021-03-15] MEDS: GABAPENTIN 100 MG CAP PO SCH (09:00)
[2021-03-15] MEDS: MULTIVITAMIN TAB PO SCH (09:01)
[2021-03-15] MEDS: DICLOFENAC SOD 1% GEL 100 GM TUBE EXT SCH ×4 (10:41→21:21)
--- NOTE | 2021-03-15 13:49 | Hospitalist Progress Note ---
Date of Service March 15, 2021 Assessment & Plan (1) Herniated nucleus pulposus, L4-5 right: (2) Sciatica: Plan: Low back pain with radiation right leg with paresthesias History lumbar herniation POD#3 s/p L4-L5 lumbar decompression and fusion today by Dr. Loyola Monitor H&H (EBL 100ml. Hgb 12.6 today (pre-op hgb 13.6) Continue incentive spirometry, PT/OT when appropriate Remains stable and will be discharged home tomorrow as per Ortho service (3) Orthostatic hypotension: Plan: Episode of orthostatic hypotension where she developed near syncope, lightheadedness and nausea. BP was taken that time and noted to be 61/24 and then 98/52. Improved to 128/80 when she got back into bed Was given 500ml NSS bolus with complete resolution of symptoms Continue maintenance fluids Discussed changing positions cautiously, fall precautions Will give 2 L of intravenous fluid to avoid postural hypotension Get orthostatic vitals tomorrow before discharge No more dizziness with ambulation and her orthostatic vitals were unremarkable and did not have any symptoms Medically stable to be discharged tomorrow (4) GERD (gastroesophageal reflux disease): Plan: Continue PPI (5) HAILEY (obstructive sleep apnea): Plan: CPAP HS DVT Prophylaxis Per ortho Follows with Dr Patel for routine care Pt was seen and care coordinated with Dr. Matta. See addendum Thank you for this consultation. We will follow the patient with you during their hospital stay. You [facility] via TigerText Admission and Anticipated Discharge Date Admission Date: March 11, 2021 Subjective 03/14/2021 The patient was seen and examined in medical floor She was noted to have another episode of postural hypotension with near syncope this morning Still has back pain but denies any numbness and tingling involving the lower extremities 03/15/21 The patient was seen and examined in medical floor She has been out of bed and has minimal back pain without any radiculopathy Did not have any more dizziness with ambulation Review of Systems Review of Systems: All systems reviewed and are unremarkable except as noted below Musculoskeletal: Back pain without any radiculopathy Physical Exam Physical Exam: Gen: WD/WN, NAD, lying in bed, A&Ox3 HEENT: Normocephalic, atraumatic, conjunctivae moist, sclerae anicteric, mucous membranes moist Lung: Clear to Auscultation bilaterally, no wheezes/rales/rhonchi Heart: Tachycardic rate, regular rhythm, no murmurs, rubs, or gallops Abdomen: Soft, NT, ND +BS x 4 Extremities: Spinal dressing c/d/i. ANATOLY drain visualized. No edema : Black catheter in place Skin: Warm, no rash Results & Data Results & Data ([facility]) Vital Signs (Past 12 Hours) Vital Signs Temp Pulse Resp BP Pulse Ox 03/15/21 07:12 36.8 C 88 14 137/75 97 Laboratory Results Short CBC 03/15/21 Range/Units 06:09 WBC 12.77 H (4.8-10.8) K/uL Hgb 11.6 L (12.0-16.0) g/dL Hct 36.3 L (37-47) % Plt Count 249 (130-400) K/uL BMP 03/15/21 03/15/21 06:09 09:31 Sodium 139 Potassium 3.5 Chloride 108 H Carbon Dioxide 25 BUN 11 Creatinine 0.61 Glucose 109 H Calcium 8.7 Medications Administered Current Inpatient Medications Acetaminophen (Acetaminophen 500 Mg Tab) 1,000 mg PO Q8H PRN PRN Reason: MILD Pain Scale 1,2,3 & Pre PT Stop: 04/10/21 15:29 Last Admin: 03/14/21 12:35 Dose: 1,000 mg Documented by: Acetaminophen (Acetaminophen 500 Mg Tab) 1,000 mg PO Q8H PRN PRN Reason: MILD Pain Scale 1,2,3 & Pre PT Stop: 04/11/21 18:26 Al Hydrox/Mg Hydrox/Simethicone (Aluminum/Magnesium Susp 30 Ml Udc) 30 ml PO Q6H PRN PRN Reason: Dyspepsia Stop: 04/10/21 15:29 Al Hydrox/Mg Hydrox/Simethicone (Aluminum/Magnesium Susp 30 Ml Udc) 30 ml PO Q6H PRN PRN Reason: Dyspepsia Stop: 04/11/21 18:26 Ascorbic Acid (Ascorbic Acid 500 Mg Tab) 500 mg PO DAILY MARY CARMEN Stop: 04/11/21 08:59 Last Admin: 03/15/21 09:00 Dose: 500 mg Documented by: Aspirin (Aspirin 81 Mg Ectab) 81 mg PO DAILY [facility] Stop: 04/11/21 08:59 Last Admin: 03/15/21 08:59 Dose: 81 mg Documented by: Bisacodyl (Bisacodyl 10 Mg Supp) 10 mg NE DAILY PRN PRN Reason: Constipation Stop: 04/12/21 13:57 Bisacodyl (Bisacodyl 10 Mg Supp) 10 mg NE DAILY PRN PRN Reason: Constipation Stop: 04/11/21 18:26 Diclofenac Sodium (Diclofenac Sod 1% Gel 100 Gm Tube) 4 gm EXT QID [facility] Stop: 04/14/21 08:59 Last Admin: 03/15/21 10:41 Dose: 4 gm Documented by: Diphenhydramine HCl (Diphenhydramine Capsule 25 Mg Cap) 25 mg PO Q6H PRN PRN Reason: Allergic Rhinitis/Insomnia Stop: 04/10/21 15:29 Diphenhydramine HCl (Diphenhydramine Capsule 25 Mg Cap) 25 mg PO Q6H PRN PRN Reason: Allergic Rhinitis/Insomnia Stop: 04/11/21 18:26 Famotidine (Famotidine 20 Mg Tab) 20 mg PO Q12H PRN PRN Reason: Dyspepsia Stop: 04/11/21 18:26 Gabapentin (Gabapentin 100 Mg Cap) 100 mg PO DAILY [facility] Stop: 04/11/21 08:59 Last Admin: 03/15/21 09:00 Dose: Not Given Documented by: Hydromorphone HCl (Hydromorphone Inj 0.5 Mg/0.5 Ml Syr) 0.5 mg IV Q3H PRN PRN Reason: MOD pain (scale 4-6) & Pre PT Stop: 03/25/21 15:29 Last Admin: 03/14/21 12:46 Dose: 0.5 mg Documented by: Hydromorphone HCl (Hydromorphone Inj 1 Mg/Ml Syringe) 1 mg IV Q3H PRN PRN Reason: severe pain (scale 7-10) Stop: 03/25/21 15:29 Last Admin: 03/11/21 23:47 Dose: 1 mg Documented by: Hydromorphone HCl (Hydromorphone Inj 0.5 Mg/0.5 Ml Syr) 0.5 mg IV Q3H PRN PRN Reason: MODERATE Pain (Scale 4,5,6) & Pre PT Stop: 12/23/21 18:26 Hydromorphone HCl (Hydromorphone Inj 1 Mg/Ml Syringe) 1 mg IV Q3H PRN PRN Reason: SEVERE Pain (Scale 7,8,9,10) Stop: 03/26/21 18:26 Hydroxyzine HCl (Hydroxyzine Hcl 25 Mg Tab) 25 mg PO Q8H PRN PRN Reason: Anxiety Stop: 04/10/21 15:29 Hydroxyzine HCl (Hydroxyzine Hcl 25 Mg Tab) 25 mg PO Q8H PRN PRN Reason: Anxiety Stop: 04/11/21 18:26 Promethazine HCl 12.5 mg/ (Sodium Chloride) 50.5 mls @ 202 mls/hr IV Q6H PRN PRN Reason: Nausea &/or Vomiting Stop: 04/10/21 15:29 Lorazepam (Ativan) 0.5 mg in 1 mls @ 1 mls/min IV Q8H PRN PRN Reason: Sedation/Anxiety Stop: 04/10/21 15:29 Acetaminophen (Ofirmev) 1,000 mg in 100 mls @ 400 mls/hr IV Q8H PRN PRN Reason: Pain Rating 1-3 & Pre PT Stop: 03/15/21 18:26 Lorazepam (Ativan) 0.5 mg in 1 mls @ 1 mls/min IV Q8H PRN PRN Reason: Sedation/Anxiety Stop: 04/11/21 18:26 Promethazine HCl 12.5 mg/ (Sodium Chloride) 50.5 mls @ 202 mls/hr IV Q6H PRN PRN Reason: Nausea &/or Vomiting Stop: 04/11/21 18:26 Influenza Virus Vaccine Quadrival (Do Not Administer Flu Vaccine) 1 ea N/A PRN PRN PRN Reason: Notification Stop: 04/11/21 18:26 Ketorolac Tromethamine (Ketorolac Tromethamine 15 Mg/Ml Vial) 15 mg IV Q6H PRN PRN Reason: Pain Stop: 03/20/21 08:17 Lorazepam (Lorazepam 0.5 Mg Tab) 0.5 mg PO Q8H PRN PRN Reason: sedation/anxiety Stop: 04/10/21 15:29 Last Admin: 03/14/21 07:42 Dose: 0.5 mg Documented by: Lorazepam (Lorazepam 0.5 Mg Tab) 0.5 mg PO Q8H PRN PRN Reason: Sedation/Anxiety Stop: 04/11/21 18:26 Magnesium Hydroxide (Magnesium Hydroxide Susp 30 Ml Udc) 30 ml PO Q24H PRN PRN Reason: Constipation Stop: 04/10/21 15:29 Magnesium Hydroxide (Magnesium Hydroxide Susp 30 Ml Udc) 30 ml PO Q24H PRN PRN Reason: Constipation Stop: 04/11/21 18:26 Metoclopramide HCl (Metoclopramide Hcl Inj 5 Mg/Ml 2 Ml Vial) 10 mg IV Q6H PRN PRN Reason: Nausea &/or Vomiting Stop: 04/10/21 15:29 Metoclopramide HCl (Metoclopramide Hcl Inj 5 Mg/Ml 2 Ml Vial) 10 mg IV Q6H PRN PRN Reason: Nausea &/or Vomiting Stop: 04/11/21 18:26 Multivitamins (Multivitamin Tab) 1 tab PO DAILY MARY CARMEN Stop: 04/11/21 08:59 Last Admin: 03/15/21 09:01 Dose: 1 tab Documented by: Naloxone HCl (Naloxone Hcl 0.4 Mg/1 Ml Vial/Carp) 0.1 mg IV Q5M PRN PRN Reason: Oversedation/respiratory dep Stop: 04/10/21 15:29 Naloxone HCl (Naloxone Hcl 0.4 Mg/1 Ml Vial/Carp) 0.1 mg IV Q5M PRN PRN Reason: Oversedation/Resp depression Stop: 04/11/21 18:26 Ondansetron HCl (Ondansetron Inj 2 Mg/Ml 2 Ml Vial) 4 mg IV Q6H PRN PRN Reason: Nausea &/or Vomiting Stop: 04/10/21 15:29 Ondansetron HCl (Ondansetron 4 Mg Od Tab) 4 mg PO Q6H PRN PRN Reason: Nausea Stop: 04/10/21 15:29 Ondansetron HCl (Ondansetron Inj 2 Mg/Ml 2 Ml Vial) 4 mg IV Q6H PRN PRN Reason: Nausea &/or Vomiting Stop: 04/11/21 18:26 Ondansetron HCl (Ondansetron 4 Mg Od Tab) 4 mg PO Q6H PRN PRN Reason: Nausea Stop: 04/11/21 18:26 Oxycodone HCl (Oxycodone Hcl Ir 5 Mg Tab (Immediate Release)) 5 - 10 mg PO Q4H PRN PRN Reason: mod to severe pain Stop: 03/25/21 15:29 Last Admin: 03/15/21 08:59 Dose: 10 mg Documented by: Oxycodone HCl (Oxycodone Hcl Ir 5 Mg Tab (Immediate Release)) 5 - 10 mg PO Q4H PRN PRN Reason: Pain & Pre PT Stop: 03/26/21 18:26 Pantoprazole Sodium (Pantoprazole 40 Mg Tab) 40 mg PO DAILY MARY CARMEN Stop: 04/11/21 08:59 Last Admin: 03/15/21 09:00 Dose: 40 mg Documented by: Pneumococcal Polyvalent Vaccine (Do Not Administer Pneumococcal Vaccine) 1 ea N/A PRN PRN PRN Reason: Notification Stop: 04/11/21 18:26 Senna/Docusate Sodium (Docusate Sodium/Senna 50/8.6mg Tab) 2 tab PO HS [facility] Stop: 04/11/21 20:59 Last Admin: 03/14/21 20:39 Dose: Not Given Documented by: Sodium Biphosphate/Sodium Phosphate (Sod Phosphate/Sod Biphosphate Enema 132 Ml Btl) 132 ml NE ONE PRN PRN Reason: Constipation Stop: 04/10/21 15:29 Sodium Biphosphate/Sodium Phosphate (Sod Phosphate/Sod Biphosphate Enema 132 Ml Btl) 132 ml NE ONE PRN PRN Reason: Constipation Stop: 04/11/21 18:26 Tramadol HCl (Tramadol Hcl 50 Mg Tablet) 50 - 100 mg PO Q4H PRN PRN Reason: Moderate-Severe pain & Pre PT Stop: 04/10/21 15:29 Tramadol HCl (Tramadol Hcl 50 Mg Tablet) 50 - 100 mg PO Q4H PRN PRN Reason: Moderate-Severe pain & Pre PT Stop: 04/11/21 18:26 Vitamin D (Cholecalciferol 1,000 Units 25 Mcg Tab) 1,000 units PO DAILY [facility] Stop: 04/11/21 08:59 Last Admin: 03/15/21 09:00 Dose: 1,000 units Documented by:
[2021-03-15] MEDS: DOCUSATE SODIUM/SENNA 50/8.6MG TAB PO SCH (21:20)
[2021-03-16] MEDS: oxyCODONE HCL IR 5 MG TAB (IMMEDIATE RELEASE) PO PRN ×3 (05:10→14:22)
[2021-03-16] MEDS: ASCORBIC ACID 500 MG TAB PO SCH (08:05)
[2021-03-16] MEDS: PANTOprazole 40 MG TAB PO SCH (08:06)
[2021-03-16] MEDS: ASPIRIN 81 MG ECTAB PO SCH (08:06)
[2021-03-16] MEDS: DICLOFENAC SOD 1% GEL 100 GM TUBE EXT SCH ×2 (08:07→12:51)
[2021-03-16] MEDS: CHOLECALCIFEROL 1,000 UNITS 25 MCG TAB PO SCH (08:07)
[2021-03-16] MEDS: GABAPENTIN 100 MG CAP PO SCH (08:08)
[2021-03-16] MEDS: MULTIVITAMIN TAB PO SCH (08:08)
--- NOTE | 2021-03-16 08:31 | Discharge Summary ---
Date of Service March 16, 2021 Admission HPI Per Admitting Provider This is a 51-year-old female well-known to me that presents with marked decline in status with worsening pain in the lumbosacral junction rating into the right buttock posterior thigh into the anterior tibia. She gets numbness and tingling down to her toes. She is developing a significant foot drop on the right. Left lower extremities asymptomatic. She is undergone extensive course of nonoperative care including multiple epidural injections and physical therapy. She is noted to have decline recently with marked severe pain and progressive weakness. Principal Diagnosis Lumbar discrimination with radiculopathy. Discharge Data Allergies Allergy/AdvReac Type Severity Reaction Status Date / Time cephalexin Allergy Mild rash Verified 03/12/21 13:44 Sulfa (Sulfonamide Allergy Mild rash Verified 03/12/21 13:44 Antibiotics) Penicillins Allergy Unknown ? Verified 03/12/21 13:44 adhesive AdvReac Unknown BANDAIDS - Verified 03/12/21 13:44 BURN SKIN Consultations 03/11/21 13:17 ED Decision to Admit Stat 03/11/21 15:30 Consult Internal Medicine Routine Procedures Performed Operation Date: 03/12/21 10:50 Actual Procedures p L4-L5 Decompression and Fusion(Not Applicable) - Edward Loyola DO Ordered Studies 03/12/21 11:00 FL lumbar spine 2-3V Routine Hospital Course (1) Herniated nucleus pulposus, L4-5 right: Patient was admitted with worsening leg pain and weakness underwent surgery the following day for decompression fusion. She tolerated procedure well was taken to orthopedic for postoperative. Postop day 1 she struggled with physical therapy but progressed to postop day #2 and 3 with marked improvement of her pain and strength. ANATOLY drain decreased appropriately. Pain well controlled. Subsequently discharged home. Discharge orders instructions from the chart for further review. Total Time Total Time Spent Total Time Spent (In Minutes): 20 minutes Discharge Plan Discharge Items Patient Disposition: Home - Self-Care Reason For Visit: leg pain and weakness Discharge Diagnosis: Lumbar disc condition with radiculopathy Activity: As commented below Non-emergency contact: Primary Care Provider Call non-emergency contact if: you have any medication questions Follow-up/Referrals: Aylin Patel DO [Primary Care Provider] - Diet: Regular Addtl Attending Provider Instructions: ACTIVITY RECOMMENDATIONS: SELF CARE INSTRUCTIONS AFTER THORACIC/LUMBAR FUSIONS 1. You may walk to your tolerance. It is good exercise for your legs and back. Expect some back and intermittent leg aches and pains. 2. You may perform "counter-top" level activities (make a sandwich, dulce with a project, etc.). 3. No bending or lifting of more than 10 pounds or back twisting of any nature (roll like a log when turning in bed). 4. You may ride in a car for 20-30 minutes at a time. No driving until after your first visit with your doctor. 5. Frequent changes of position and restricting sitting to 30 minutes at a time will help limit the amount of back spasms and stiffness you may experience. 6. You may discontinue the use of ambulatory aids (cane, crutches, etc.) once your strength and confidence allow. 7. You may continuous mining machine operator the shower and let water strike your incision when you arrive home at least once daily. Do not take a tub bath, sit in a hot tub or go into a swimming pool until after your first recheck in the office. SPECIAL CARE INSTRUCTIONS: VERY IMPORTANT TO READ AND REVIEW A. Your surgical incision has been closed with a cosmetic suture under the skin that will dissolve in about 6 weeks. In 14 days, you can use a pair of clean scissors and cut the suture that is left outside of the skin at the ends of your incision. 1. The small skin tapes can be removed 7 days after surgery if they have not fallen off by that point. 2. You may keep the wound open to air as much as possible to promote healing after post-op day number 5 unless told otherwise by your doctor. 3. If you think the wound looks like it is becoming infected (redness or worsening drainage) and/or you are experiencing fever, chill or worsening back pain and muscle spasms, contact the office so that we may evaluate you as soon as possible. B. Complications are uncommon, but please contact us if you have any signs or symptoms of: 1. wound infection (fever higher than 102.5 degrees F, redness, separation of wound, drainage, or increasing pain from the incision) 2. blood clots in legs (pain, swelling, redness and warmth in legs) 3. urinary tract infection (fever higher than 102.5 degrees F, burning upon urination or increased frequency of urination) 4. nerve problems (inability to walk on your toes or heels, numbness, loss of bowel or bladder control) 5. any other symptoms that concern you C. Please call the office at if you have any concerns or questions about your operation or recovery. D. No smoking! Smoking drastically decreases the chance of a solid fusion. E. Do not take any anti-inflammatory medications (Indocin, Advil, Motrin, Aspirin, Naprosyn, etc.) as these may inhibit the chance of a solid fusion. Tylenol is okay to take for pain. MANAGING PAIN AFTER SPINAL SURGERY 1. Narcotic medication is intended for short-term use and will be provided for surgical pain. Surgical pain usually lasts for a period of 4-6 weeks. Narcotic medication includes Percocet, Vicodin, Darvocet, Tylenol #3 or Lortab. 2. Longer-term pain is more appropriately treated with non-narcotic medication such as Tylenol ES. 3. Muscle spasm is not appropriately treated with narcotics. Muscle relaxers such as Soma, Flexeril or Skelaxin can be used along with Tylenol ES. 4. Remember that we all live with some "aches and pains". This is not unusual or uncommon after an injury or as we get older. a. Back pain is expected and may include muscle spasms for 4 to 6 weeks after surgery. The pain should gradually improve. If the pain worsens for no apparent reason, please contact the office. b. Intermittent leg pain may also be experienced and should not be concerned about unless it worsens for no apparent reason. If so, please contact the office. 5. We will provide appropriate medication within the normal guidelines of their prescribed use. We will also be very cautious and aware of potential abuse and extended duration of patients' medication needs. a. Pain medications are for your comfort and to assist with sleep and rest so that the tissue can heal. They are not provided in order to return to normal activity and should not be used through the day. To do so or worsening pain at night can result from ongoing tissue damage and development of tolerance to the prescribed medicine. 6. Please allow 2-3 days to process refills. Prescriptions will not be mailed but must be picked up at the office. FOLLOW UP VISIT: Keep your scheduled follow-up appointment. Any questions, please call the office at . Pending Studies at Discharge: No Stand-Alone Forms: [facility], Smoking Cessation Medications and DC Order Prescriptions: New tramadol 50 mg tablet 50 mg PO Q6H PRN (Reason: pain, moderate) Qty: 30 RF: 0 oxycodone 5 mg tablet 5 mg PO Q6H PRN (Reason: pain, severe) Qty: 30 RF: 0 Continued multivitamin Tablet 1 tab PO DAILY RF: 0 ascorbic acid (vitamin C) [Vitamin C] 500 mg Tablet 500 mg PO DAILY RF: 0 pantoprazole 40 mg Tablet,Delayed Release (Dr/Ec) 40 mg PO DAILY RF: 0 cholecalciferol (vitamin D3) [Vitamin D3] 1,000 unit Tablet 1,000 unit PO DAILY RF: 0 Amberen 1 tab PO DAILY RF: 0 aspirin [Aspirin Low Dose] 81 mg Tablet,Delayed Release (Dr/Ec) 81 mg PO DAILY RF: 0 gabapentin 100 mg capsule 100 mg PO DAILY RF: 0 cinnamon bark [Cinnamon] 500 mg Capsule 500 mg PO DAILY RF: 0 Discontinued indomethacin 75 mg Capsule, Extended Release 75 mg PO BID RF: 0 Discharge Orders: Discharge Order (Routine); Ordered 03/16/21 Ordered By: Edward Loyola Admission Data Admit Date/Time: 03/11/21 14:01 Attending Provider: Edward Loyola Admit Provider: Edward Loyola Primary Care Provider: Aylin Patel Other Providers: Jessi Plaza ; Edward Loyola ; Radha Ward ; Laurel Matta
--- NOTE | 2021-03-16 09:42 | Hospitalist Progress Note ---
Date of Service March 16, 2021 Assessment & Plan (1) Herniated nucleus pulposus, L4-5 right: (2) Sciatica: Plan: Low back pain with radiation right leg with paresthesias History lumbar herniation POD#4 s/p L4-L5 lumbar decompression and fusion today by Dr. Loyola Monitor H&H -EBL 100 cc, drain output 485 cc, preop Hgb 13.6 --> 11.6 on 03/15 Continue incentive spirometry, PT/OT Medically stable for discharge (3) Orthostatic hypotension: Plan: Received IVF, resolved BP stable, no further lightheadedness or dizziness (4) GERD (gastroesophageal reflux disease): Plan: Continue PPI (5) HAILEY (obstructive sleep apnea): Plan: CPAP HS DVT Prophylaxis TEDs/SCDs as per Ortho Follows with Dr Patel for routine care Thank you for this consultation. We will follow the patient with you during their hospital stay. You can reach a [facility] via TigerText Admission and Anticipated Discharge Date Admission Date: March 11, 2021 Supervising Physician Co-Signing Physician Notes Attending addendum The patient was seen and examined in medical floor Is status post lumbar back surgery and remained stable to be discharged Denies any significant pain or no radiculopathy On examination Hemodynamically stable Chest-clear Heart-regular Abdomen-benign Extremities-negative without any neuro deficit His labs, imaging studies noted Medically stable following lumbar surgery Agree with assessment and plan as outlined above by Treva Matta Subjective Patient seen and examined. Follow-up for medical management after back surgery. Patient reports she is feeling well this morning, pain is well controlled. Eager to be discharged. Tolerating meals, denies abdominal pain or nausea. Moving bowels, urinating without difficulty. No chest pain or shortness of breath. Denies lightheadedness and dizziness with standing. Review of Systems Review of Systems: ROS per HPI, all other systems reviewed and negative Physical Exam Constitutional: WD/WN, vitals as above no acute distress Respiratory: normal respiratory effort, lungs clear to auscultation Cardiovascular: Rate/Rhythm: regular rate and regular rhythm Vessels: normal peripheral pulses Extremities: no edema Gastrointestinal (Abdomen): Percussion/Palpation: abdomen soft; abdomen nontender Musculoskeletal: S/p back surgery, drain in place draining small amount of serosanguineous drainage, pedal pushes and pull strong bilaterally Skin: no rashes, warm and dry Neurologic: no focal motor deficits Psychiatric: A+Ox3, euthymic affect Results & Data Results & Data ([facility]) Vital Signs (Past 12 Hours) Vital Signs Temp Pulse Resp BP Pulse Ox 03/16/21 07:27 36.5 C 85 16 138/84 100 03/15/21 22:26 37.1 C 90 18 129/79 95
== END 2021-03-16 14:52 | disposition home or self-care (01) | DRG 455 ==
LOC: ED 10:02 → 3N 14:01